=== PATIENT | female | born 1940 | race Caucasian/White ===

== ENCOUNTER 2020-01-18 10:29 | Outpatient (REF) | payer MEDICARE, SELFPAY | END 2020-01-18 10:30 | disposition home or self-care (01) | LOC: HO.LAB 10:29 | PROVIDERS: Visit Provider Internal Medicine | DX: Z20.828 Contact with and (suspected) exposure to other viral communicable diseases (principal) | CPT/HCPCS: 87635 ==

== ENCOUNTER 2022-11-25 15:39 | Emergency (ER) | payer MEDICARE, SELFPAY ==
[2022-11-25 16:04] VITALS: BP 159/89; PULSE 107; RESP 20; TEMP 36.2; O2SAT 96; BMI 22.3
--- NOTE | 2022-11-25 16:05 | ED.GENADULT ---
HPI - General Adult General Chief complaint: Abdominal Pain Stated complaint: thyroid / nausea Related Data Allergies Allergy/AdvReac Type Severity Reaction Status Date / Time No Known Allergies Allergy Verified 11/25/22 16:07 [facility] Social History Social History Advance Directives: No Advance Directives Information Provided: No Physical Exam ED Vital Signs: BMI result Body Mass Index 22.3 Course Course Course Narrative: This is a rapid medical exam: Additional HPI, ROS, PE not included below will be deferred to primary provider. Patient is an 82-year-old female presenting to the emergency department with complaint of severe diarrhea and left sided abdominal pain since Thursday. Daughter states she had a headache on Thursday prior to onset of symptoms. Plan: labs, UA Medical Decision Making Lab Data 11/25/22 16:25 11/25/22 16:25 Labs: Lab Results 11/25/22 11/25/22 Range/Units 16:25 16:25 WBC 6.3 (4.8-10.8) X10*3/uL RBC 5.16 (4.20-5.50) X10*6/uL Hgb 14.8 (12.0-16.0) g/dl Hct 45.4 (37.0-47.0) % MCV 88.0 (80.0-98.0) fL MCH 28.7 (27.0-33.0) pg MCHC 32.6 (31.0-35.0) g/dl RDW 13.5 (11.0-16.0) % Plt Count 240 (160-400) X10*3/uL MPV 10.7 (9.4-12.3) fL Immature Gran % (Auto) 0.6 H (0.0-0.4) % Neut % (Auto) 68.8 (45-73) % Lymph % (Auto) 18.0 L (20-40) % Tift % (Auto) 10.2 (2-11) % Eos % (Auto) 1.4 (0-4) % Baso % (Auto) 1.0 (0-2) % Lymph # (Auto) 1.1 L (1.2-4.9) X10*3/uL Tift # (Auto) 0.6 (0.1-1.2) X10*3/uL Eos # (Auto) 0.1 (0.0-0.4) X10*3/uL Baso # (Auto) 0.1 (0.0-0.2) X10*3/uL Abs Immat Gran (auto) 0.04 H (0.00-0.03) X10*3/uL Absolute Neuts (auto) 4.3 (2.0-8.3) x10*3/uL Absolute Nucleated RBC 0.000 (0.0-0.012) X10*3/uL Nucleated RBC % (auto) 0.0 (0.0-0.2) /100WBC Sodium 138 (135-145) mmol/L Potassium 3.2 L (3.3-5.1) mmol/L Chloride 105 (96-108) mmol/L Carbon Dioxide 22 (22-29) mmol/L Anion Gap 14 (12-20) BUN 16 (9-16) mg/dL Creatinine 1.04 (0.5-1.4) mg/dL Estim Creat Clear Calc 36.6 Estimated GFR 51 Random Glucose 158 H (60-115) mg/dL Calcium 9.8 (8.4-10.2) mg/dL Total Bilirubin 0.4 (0.0-1.0) mg/dL AST 18 (5-31) U/L ALT 15 (0-31) U/L Alkaline Phosphatase 71 (39-117) U/L Total Protein 7.2 (6.5-8.0) g/dL Albumin 4.1 (3.5-5.0) g/dL Lipase 19 (8-78) U/L Discharge Plan Discharge Clinical Impression: Abdominal pain Patient Disposition: [facility] Discharge Date/Time: 11/25/22 21:27
[2022-11-25 16:29] LABS: MANUAL DIFF FLAG NO
[2022-11-25 16:58] LABS: Alanine Aminotransferase 15 U/L (0-31); Albumin Level 4.1 g/dL (3.5-5.0); Alkaline Phosphatase 71 U/L (39-117); Anion Gap 14 (12-20); Aspartate Amino Transferase 18 U/L (5-31); Basophils Absolute Auto 0.1 X10*3/uL (0.0-0.2); Bilirubin Total 0.4 mg/dL (0.0-1.0); Blood Urea Nitrogen 16 mg/dL (9-16); Calcium 9.8 mg/dL (8.4-10.2); Carbon Dioxide 22 mmol/L (22-29); Chloride 105 mmol/L (96-108); Creatinine Clr Calc Pharmacy 36.6; Eosinophils Absolute Auto 0.1 X10*3/uL (0.0-0.4); Eosinophils Percent Auto 1.4 % (0-4); Estimated Glomerular Filt Rate 51; Glucose Random 158 mg/dL (60-115); Hematocrit 45.4 % (37.0-47.0); Hemoglobin 14.8 g/dl (12.0-16.0); Imm Gran Abs Auto 0.04 X10*3/uL (0.00-0.03); Imm Gran Pct Auto 0.6 % (0.0-0.4); Lipase 19 U/L (8-78); Lymphocytes Absolute Auto 1.1 X10*3/uL (1.2-4.9); Mean Corpuscular HGB Conc 32.6 g/dl (31.0-35.0); Mean Corpuscular Hemoglobin 28.7 pg (27.0-33.0); Mean Platelet Volume 10.7 fL (9.4-12.3); Monocytes Absolute Auto 0.6 X10*3/uL (0.1-1.2); Monocytes Percent Auto 10.2 % (2-11); Neutrophils Absolute Auto 4.3 x10*3/uL (2.0-8.3); Neutrophils Percent Auto 68.8 % (45-73); Platelet Count 240 X10*3/uL (160-400); Potassium 3.2 mmol/L (3.3-5.1); Red Blood Count 5.16 X10*6/uL (4.20-5.50); Red Cell Distribution Width 13.5 % (11.0-16.0); Sodium 138 mmol/L (135-145); Total Protein 7.2 g/dL (6.5-8.0); White Blood Count 6.3 X10*3/uL (4.8-10.8)
== END 2022-11-25 21:27 | disposition left against medical advice (07) ==
LOC: HO.ED 21:17
PROVIDERS: Registered Nurse Emergency; Emergency Provider Emergency Medicine
DX: R10.13 Epigastric pain (principal); R11.2 Nausea with vomiting, unspecified; Z79.899 Other long term (current) drug therapy
CPT/HCPCS: 36415; 80053; 83690; 85025; 99281; 99283